=== PATIENT | female | born 1950 | race Caucasian/White ===

== ENCOUNTER 2016-06-10 01:30 | Day surgery (SDC) | payer MEDICARE, OTHER ==
[~2016-06-10] VITALS: Ht 165.1 cm; Wt 58.1 kg
[~2016-06-10 01:30] MED LIST: OMEP20CA11 PO; SPIR50TA2 PO
[2016-06-10] MEDS ORDERED: fentaNYL-PF 50 mCg/mL 2 mL Inj ONE (01:31)
[2016-06-10] MEDS ORDERED: Propofol 10,000 mCg/mL 20 mL Inj ONE (01:31)
[2016-06-10] MEDS ORDERED: LORA0.5T PO (09:20)
[2016-06-10 09:22] VITALS: BP 103/58; PULSE 61; RESP 14; O2SAT 97
--- NOTE | 2016-06-10 09:59 | PCM.HPANE ---
Patient Data Date of Service: June 10, 2016 Surgeon Admitting Provider: Attending Provider:Jasbir Nuno MD Primary Care Physician:Yanet Enamorado Other Provider:Mario Briggs Anesthesia Reason for Visit Cirrhosis Of Liver Not Due To Alcohol Ht/WT & BMI Height (Feet): 5 Height (Inches): 5 Weight (Kilograms): 58.06 Body Mass Index 21.00 Allergies Coded Allergies: No Known Drug Allergies (Verified Allergy, Unknown, 06/09/16) Past Anesthesia History Anesthesia History: Positive for:: Anesthesia Reactions (last colonoscopy hard to recovery), Denies:: Fam Anesthesia Reaction, Fam Malignant Hypertherm, Malignant Hyperthermia Diabetes History Hx Diabetes?: No MRSA MRSA: No Medications Reported Medications Lorazepam 0.5 Mg Tablet0.5 Mg PO TID PRN For Anxiety Ref 0 06/10/16 Omeprazole 20 Mg Capsule.dr20 Mg PO DAILY Ref 0 07/08/15 Discontinued Reported Medications Spironolactone 50 Mg Okyinz57 Mg PO DAILY #30 TABLET Ref 0 07/08/15 oxyCODONE-Acetaminophen 5-325 mg 1 Each Tablet1 Tab PO Q6H PRN For Pain Ref 0 07/08/15 Furosemide (Lasix)20 Mg Ctzoub02 Mg PO DAILY 30 Days Ref 0 07/08/15 Potassium Chloride ER (Klor-Con 10)10 Meq Tablet5 Meq PO DAILY Ref 0 07/08/15 History History of ENT Problems?: No HEENT History: Positive for:: Hearing Problem (no hearing aids) Denture Type: None Teeth Condition: Tooth Decay Hx of Heart Problems?: No Cardiovascular History: Positive for:: Heart Murmur (not noted on exam, but noted in old record) Hypertension Hx of Respiratory Problem?: No Respiratory History: Denies:: Use of C-PAP Machine Hx Neurologic Problems?: Yes Neurological History: Positive for:: Dementia (HX OF MILD CONFUSION IN PAST/ POSS R/T ETOH) Hx of GI Problems?: Yes Other GI Pertinent History: hx of esophageal varices Hx of Problems?: Yes Female Hx: Denies:: Currently Skin History: Denies:: History Skin Disorders? Pressure Ulcers Hx Musculoskeletal Problems?: Yes Musculoskeletal History: Positive for:: Musculoskeletal Trauma (S/P ORIF LT ANKLE W/ SUBSEQUENT HARDWARE REMOVAL (REMOTELY)) Hx of Psycho/Social Problems?: No Psycho Social History: Positive for:: Anxiety (sometimes) Hx Surgeries?: Yes (APPY,HERNIA RPR,KEILA,HYST/BSO,TURBT,LIVER BX,ORIF LT ANKLE W/ HDWRE REMOVA) Hx Any Other Health Problems?: Yes Other History: Positive for:: Cancer (BLADDER) Hospitalization Denies:: Endocrine Disease Thyroid Disease History Blood Transfusions: Denies:: Blood Transfusions Hx Diabetes: No Hx Alcohol Use: Yes (HX OF ABUSE)Hx Substance Use: No Smoking Status: Former Smoker Have You Smoked inLast 12 mo: No Stop/Bang Treated for Sleep Apnea?: No Do You Have a CPAP Machine?: No S-Snoring: Do You Snore Loudly: No T-Tired: feel tired, fatigued: No O-Obsered: Observed not breath: No P-Blood Pressure: treated: No B- Body Mass Index > 35 kg/m2: No A- Age over 50: Yes N- Neck Large Circumference: No G- Gender Male: No AISSATOU Total Score: 1 AISSATOU Risk Assessment: Low Risk, <3 Yes Risk Assessment Category Category 1A: Patient has history of documented sleep apnea, and HAS NOT received any narcotic, sedative or anesthesia administration during this stay. Category 1B: Patient has history of documented sleep apnea, and HAS received any narcotic , sedative or anesthesia administration during this stay Category 2: Patient has SUSPECTED Obstructive Sleep Apnea, and HAS received any narcotic , sedative or anesthesia administration during this stay. Category 3: Patient has SUSPECTED Obstructive Sleep Apnea and HAS NOT received narcotic, sedative or anesthesia administration during this stay. Category 4: Outpatient in Procedural Areas with known sleep apnea or who screen positive for High Risk via the STOP/BANG questionnaire. Exam Exam Vital Signs Vital Signs Date Time Temp Pulse Resp B/P Pulse Ox O2 Delivery O2 Flow Rate FiO2 06/10/16 09:22 61 14 103/58 97 Room Air General Appearance: Alert, Oriented X3, Cooperative, No Acute Distress HEENT/AIRWAY: MP 2 Lungs: Clear to Auscultation, Normal Air Movement Heart: Exam Unremarkable, Regular Rate/Rhythm, No Murmurs/Rubs/Gallops Plan Impression Patient chart reviewed, patient interviewed and anesthestic plan with risks, benefits, and alternatives discussed, and informed consent obtained. NPO per Anesth. Guidelines: Yes ASA Physical Status: ASA2 Mod Systemic Disease Anesthetic Plan: MAC Bene/Risks/Altern/Consents: Yes HP Complete Prior to Induction: Yes Keegan Godoy MD June 10, 2016 09:59
[2016-06-10] MEDS: Lactated Ringer's 1,000 ML IV ONE ×2 (10:10→10:28)
--- NOTE | 2016-06-10 10:18 | PCM.ENDEGD ---
EGD Date of Service: June 10, 2016 Physician Jasbir Nuno MD Pre Procedure Diagnosis: Varices screening Post Procedure Dx & Findings: Possible grade 1 varices AVM and atrophic gastropathy Procedure Esophagogastroduodenoscopy PROCEDURE IN DETAIL: After proper sedation, Olympus video endoscope was inserted into patient's mouth and esophagus was successfully intubated. Scope introduced esophagus. Esophagus showed normal shiny whitish mucosa consistent with squamous cell component. Z line was intact at 37 cm from the incisors. The are probably couple columns of grade 1 varices. Scope advanced to the stomach. However in the body and the antrum, we saw submillimeter AVMs at least half a dozen. No bleeding. Small erosion was noted as well as atrophic gastropathy in the antrum. These were biopsied. Cardia fundus body antrum pylorus were all visualized. Retroflexion was done. Stomach was easily inflated and deflatable using air. Scope further events to the distal duodenum. Duodenum revealed normal villous structures with normal appearing folds without any mass ulcer erosion. Impression Atrophic gastropathy Gastric AVMs as described above Possible grade 1 varices Recommendation Repeat EGD in about 2-3 years. He has compensated cirrhosis. Presedation Assessment Risks and Benefits Informed consent was obtained from the patient after all risks and benefits including but not limited to drug reaction, infection, pain, bleeding, perforation, as well as alternatives were discussed. Patient monitoring Continuous pulse oximetry, cardiac monitoring, blood pressure monitoring, IV access, and oxygen at 2L per nasal cannula. Complications There were no periprocedural complications identified. Post Procedure Plan Post Procedure Recommendations 1. Restrict activities today. 2. Resume normal activities in the morning. 3. Resume medications. 4. GERD behavioral modification: - Avoid fatty, acidic, spicy, large meals - Do not lie down after meals - Do not eat or drink anything for at least 2 1/2 hours before going to bed at night - Discontinue tobacco and alcohol - Decrease or avoid caffeine - Avoid chocolate and mints - Decrease weight - Avoid aspirin and non steroidal anti-inflammatory agents (NSAID) such as Aleve, Advil, Mobic, Naproxen, Ibuprofen, etc 5. Add proton pump inhibitor. Take 30 minutes before 1st meal of the day. 6. Patient informed of normal post procedure side effects as bloating, drowsiness, blood streaking in the stool 7. If gastric biopsy reveal H.pylori, continue with appropriate treatment 8. If small bowel biopsy reveals celiac, continue with appropriate treatment 9. Please don't hesitate to call me with any questions Jasbir Nuno MD June 10, 2016 10:18
[2016-06-10 10:40] VITALS: BP 89/54; PULSE 55; RESP 16; O2SAT 100
--- NOTE | 2016-06-10 10:43 | PCM.ENDCOL ---
Colonoscopy Date of Service: June 10, 2016 Physician Jasbir Nuno MD Pre Procedure Diagnosis: Screening Post Procedure Dx & Findings: Polyps, diverticuliti hemorrhoids Procedure Colonoscopy PROCEDURE IN DETAIL: Prep adequate Withdrawal time 11 minutes After unremarkable rectal examination the Olympus video colonoscope was inserted patient's anal canal and was advanced to cecum. Landmarks were identified including the ileocecal valve and appendiceal orifice. Scope was withdrawn systematically. Visualized colonic mucosa showed healthy shiny mucosa with normal healthy-appearing vasculature. In the sigmoid colon there was a 2 mm polyp. This was removed completely using cold snare. In the rectum there was a 1 mm polyp which was removed completely using cold forcep. In the sigmoid colon and all the way up to the ascending colons multiple diverticuliti noted mostly in the sigmoid and descending colon. In the rectum retroflexion was done which showed hemorrhoids. Anal canal was inspected carefully on the way out and hemorrhoids noted. Impression Polyps 2 status post complete removal Diverticuli Hemorrhoids Recommendation Repeat colonoscopy in 5 years Diverticular diet Presedation Assessment Risks and Benefits Informed consent was obtained from the patient after all risks and benefits including but not limited to drug reaction, infection, pain, bleeding, perforation, as well as alternatives were discussed. Patient monitoring Continuous pulse oximetry, cardiac monitoring, blood pressure monitoring, IV access, and oxygen at 2L per nasal cannula. Complications There were no periprocedural complications identified. Post Procedure Plan Post Procedure Recommendations 1. Restrict activities today. 2. Resume normal activities in the morning. 3. Resume medications. 4. Patient informed of normal post procedure side effects as bloating, drowsiness, blood streaking in the stool. 5. average risk CRCS. If colon polyps come back as: -Hyperplastic- can repeat colonoscopy in 10 years -Tubular adenoma- repeat colonoscopy in 5 years -Tubulovillous/villous adenoma- repeat colonoscopy in 3 years -If any dysplasia- return to clinic as soon as possible 6. Please don't hesitate to call me with any questions. Jasbir Nuno MD June 10, 2016 10:42
[2016-06-10] MEDS ORDERED: Lactated Ringer's 1,000 ML IV SCH (10:44)
[2016-06-10] MEDS ORDERED: Lactated Ringer's 500 ML IV PRN (10:44)
--- NOTE | 2016-06-10 10:44 | PCM.ANEP1 ---
Post Anesthesia Phase 1 PACU Phase 1 Assessment Date of Service: June 10, 2016 Vital Signs Vital Signs Date Time Temp Pulse Resp B/P Pulse Ox O2 Delivery O2 Flow Rate FiO2 06/10/16 10:40 55 16 89/54 100 Room Air 06/10/16 09:22 61 14 103/58 97 Room Air Anesthetic Administered: MAC Level of Alertness: Awake, talking JENKINS's with Equal Strength: Yes Pain: No Nausea or Vomiting: No Cardiovascular Function and Hy: Yes Oxygen Delivery: Room Air Lungs: Clear to Auscultation, Normal Air Movement Complications: No Follow up Care: No Patient Instructions Provided: Yes Keegan Godoy MD June 10, 2016 10:44
[2016-06-10] MEDS ORDERED: MetoCLOpramide 5 mg/mL 2 mL Inj IVPUSH PRN (10:45)
[2016-06-10] MEDS ORDERED: Ondansetron 2 mg/mL 2 mL Inj IVPUSH PRN (10:45)
[2016-06-10] MEDS ORDERED: Atropine 0.4 mg/mL Inj IVPUSH PRN (10:45)
[2016-06-10 10:50] VITALS: BP 99/53; PULSE 49; RESP 16; O2SAT 98
[2016-06-10 11:00] VITALS: BP 99/53; PULSE 51; RESP 16; O2SAT 99
--- NOTE | 2016-06-16 15:05 | PATH ---
SURGICAL PATHOLOGY Attending Physician:Jasbir Nuno M.D. CASE STATUS: Signed Out PATIENT NAME: SHIN PATEL PID: [id number] : 1950 DATE COLLECTED:06/10/2016 17:12 SPECIMEN: 1: Gastric, Biopsy 2: Colon, Biopsy 3: Rectum, Biopsy CLINICAL HISTORY: 1. GASTRIC EROSION BIOPSY 2. SIGMOID COLON POLYP 3. RECTAL POLYP FINAL DIAGNOSIS: A. Stomach, Erosion, Biopsy: Antral-type mucosa with no diagnostic abnormality. Negative for Helicobacter by immunohistochemistry. Negative for intestinal metaplasia. Negative for dysplasia or malignancy. B. Sigmoid Colon, Polyp, Biopsy: Tubular adenoma. C. Rectum, Polyp, Biopsy: Hyperplastic polyp. ICD10: D12.8 GROSS DESCRIPTION: The specimen is received in three formalin filled containers labeled with the patient's name. 1). The specimen is sublabeled "gastric erosion" and consists of 2 portions of tissue which aggregate to 0.3 x 0.3 x 0.2 CM. The specimen is entirely submitted in cassette 1A. 2). The specimen is sublabeled "sigmoid colon polyp" and consists of 2 portions of tissue which aggregate to 0.5 x 0.5 x 0.3 CM. The specimen is entirely submitted in cassette 2A. 3). The specimen is sublabeled "rectal polyp" and consists of a 0.4 x 0.3 x 0.2 CM portion of tissue which is entirely submitted in cassette 3A. 06/10/2016 DAC MICRO DESCRIPTION: A. An immunohistochemical stain was performed to evaluate for Helicobacter organisms and is negative. A control stain showed appropriate reactivity. This test was developed and its performance characteristics determined by [facility]. It has not been cleared or approved by the U.S. Food and Drug Administration. The FDA has determined that such clearance or approval is not necessary. This test is used for clinical purposes. It should not be regarded as investigational or for research. ICD-9 CODES: CPT CODES: 1: 65478, 05221 2: 74188 3: 12367 Electronically Signed Out Linnea Coe MD [facility], [place] [address] Technical component performed at [facility], [facility] [address], [address]
== END 2016-06-10 23:59 | disposition home or self-care (01) ==
LOC: END 01:30
PROVIDERS: ATTEND Internal Medicine
DX: Z12.11 Encounter for screening for malignant neoplasm of colon (principal); D12.5 Benign neoplasm of sigmoid colon; K62.1 Rectal polyp; K57.30 Diverticulosis of large intestine without perforation or abscess without bleeding; K64.9 Unspecified hemorrhoids; I85.00 Esophageal varices without bleeding; K31.9 Disease of stomach and duodenum, unspecified; K74.60 Unspecified cirrhosis of liver; I10 Essential (primary) hypertension; F41.9 Anxiety disorder, unspecified; N39.3 Stress incontinence (female) (male); Z90.710 Acquired absence of both cervix and uterus; Z85.51 Personal history of malignant neoplasm of bladder; Z87.891 Personal history of nicotine dependence
CPT/HCPCS: 43239; 45380; 45385; J3010; J7120